=== PATIENT | female | born 1955 ===

== ENCOUNTER 2019-03-21 11:53 | Emergency (ER) | payer MEDICAID, OTHER ==
[2019-03-21 12:16] VITALS: O2SAT 98
--- NOTE | 2019-03-21 13:57 | ED PDOC ---
Lower Extremity Pain/Injury Time Seen by Provider: 03/21/19 12:42 Chief Complaint (Nursing): Lower Extremity Problem/Injury Chief Complaint (Provider): Left Knee Pain History Per: Patient History/Exam Limitations: no limitations Onset/Duration Of Symptoms: Days Additional Complaint(s): 63 year old female presents to ED with left knee pain for past 2 months. She states she has had left knee pain that is worse in the morning when she is attempting to stand. Patient has taken Tylenol intermittently with last dose 2 days ago; of note, she is allergic to Ibuprofen. She states pain is now moving to left hip and denies any fall or trauma, fever, chills, numbness or tingling in foot. Now the pain is starting to go to the right knee. PMD: none provided Past Medical History Reviewed: Historical Data, Nursing Documentation, Vital Signs Vital Signs: Last Vital Signs Temp 98.9 F 03/21/19 12:16 Pulse 69 03/21/19 12:16 Resp 16 03/21/19 12:16 BP 120/51 L 03/21/19 12:16 Pulse Ox 98 03/21/19 12:16 Primary Care Provider: FAMILY PROVIDER,NO - Medical History PMH: No Chronic Diseases - Surgical History Surgical History: Cholecystectomy, - Family History Family History: States: Unknown Family Hx - Social History Current smoker - smoking cessation education provided: No Alcohol: None Drugs: Denies - Immunization History Hx Tetanus Toxoid Vaccination: Yes Hx Influenza Vaccination: No Hx Pneumococcal Vaccination: No - Home Medications Home Medications: Ambulatory Orders Medication Instructions Recorded Doxycycline [Adoxa] 100 mg PO BID #10 tab 08/02/14 traMADol/Acetaminophen [Ultracet 1 tab PO Q6 PRN #10 tab 08/02/14 325 MG-37.5 MG] Clindamycin [Cleocin] 300 mg PO Q6 #28 cap 10/28/16 - Allergies Allergies/Adverse Reactions: Allergies Allergy/AdvReac Type Severity Reaction Status Date / Time ibuprofen Allergy Mild RASH Verified 03/21/19 12:22 Penicillins Allergy Mild RASH Verified 03/21/19 12:22 pneumococcal vaccine Allergy Mild RASH Verified 03/21/19 12:22 EGG Allergy ITCHING Verified 03/21/19 12:22 Review of Systems ROS Statement: Except As Marked, All Systems Reviewed And Found Negative Constitutional: Negative for: Fever, Chills, Other (no fall or trauma) Musculoskeletal: Positive for: Other (left and right knee pain, left hip pain) Neurological: Negative for: Numbness (or tingling in foot) Physical Exam - Reviewed Nursing Documentation Reviewed: Yes Vital Signs Reviewed: Yes - Physical Exam Appears: Positive for: Uncomfortable Pulses-Dorsalis Pedis (L): 2+ Pulses-Dorsalis Pedis (R): 2+ Extremity: Positive for: Tenderness (on palpation of lateral and medial left knee, no patella tenderness, tenderness on palpation of left hip, mild tenderness on palpation of lateral and medial right knee), Capillary Refill (less than 2 seconds), Other (no ecchymosis or erythema to left knee, sensation to light touch intact). Negative for: Normal ROM (slightly decreased ROM with flexion and extension of left and right knee, normal ROM of left ankle), Deformity (to left knee), Swelling (to left knee) Neurological/Psych: Positive for: Alert, Oriented (x3) - Laboratory Results Result Diagrams: 03/21/19 14:50 03/21/19 14:50 - ECG O2 Sat by Pulse Oximetry: 98 (RA) Pulse Ox Interpretation: Normal Medical Decision Making Medical Decision Making: Time: 1312 Initial Impression: Initial Plan: --Left knee Xray --Left hip Xray --Tylenol 975 mg PO x1 1340 Hip Xray FINDINGS: BONES: Normal. No fracture. JOINTS: Normal. SOFT TISSUES: Normal. OTHER FINDINGS: None. IMPRESSION: Normal left hip radiographs. 1342 Knee Xray FINDINGS: BONES: No evidence of acute displaced fracture nor dislocation JOINTS: There is a small anterior superior patella enthesophyte. JOINT EFFUSION: Suspect trace suprapatellar joint effusion. OTHER FINDINGS: None. IMPRESSION: No evidence of acute displaced fracture nor dislocation. Suspect trace suprapatellar joint effusion. 1433 Hip and knee Xray reviewed by me. No acute fracture or deformity but possible signs of arthritis noted. Patient was reevaluated and she reported pain improved somewhat after Tylenol but Tylenol causes her to feel weak. CBC, BMP ordered at this time. ANN bandage and crutches provided due to pain for support with crutch training provided. - Scribe Attestation: Documented by Torsten Maza, acting as a scribe for Nora Macias PA-C Provider Scribe Attestation: All medical record entries made by the Scribe were at my direction and personally dictated by me. I have reviewed the chart and agree that the record accurately reflects my personal performance of the history, physical exam, medical decision making, and the department course for this patient. I have also personally directed, reviewed, and agree with the discharge instructions and disposition. Disposition - Clinical Impression Clinical Impression: Knee pain, left - Patient ED Disposition Is Patient to be Admitted: No Counseled Patient/Family Regarding: Studies Performed, Diagnosis, Need For Followup - Disposition Referrals: [facility] [place] [Outside] [facility] [place] [Outside] Disposition: Routine/Home Disposition Time: 15:25 Condition: STABLE Additional Instructions: Follow up with primary care doctor for further evaluation of possible arthritis. Take Tylenol as needed for pain. Return to ER if your symptoms worsen. Instructions: Knee Pain (DC) Forms: [employer] (Khmer) Print Language: ENGLISH
--- NOTE | 2019-03-21 14:32 | RAD ---
Date of service: 03/21/2019 PROCEDURE: Left Knee Radiographs. HISTORY: Pain. COMPARISON: Comparison made with radiographs left ankle 12/23/2011. TECHNIQUE: 2 views obtained. FINDINGS: BONES: No evidence of acute displaced fracture nor dislocation JOINTS: There is a small anterior superior patella enthesophyte. JOINT EFFUSION: Suspect trace suprapatellar joint effusion. OTHER FINDINGS: None. IMPRESSION: No evidence of acute displaced fracture nor dislocation. Suspect trace suprapatellar joint effusion.
--- NOTE | 2019-03-21 14:47 | RAD ---
PROCEDURE: Left Hip X-ray Radiographs. HISTORY: chronic left hip and knee pain, tenderness COMPARISON: None. TECHNIQUE: Three views obtained. FINDINGS: BONES: Normal. No fracture. JOINTS: Normal. SOFT TISSUES: Normal. OTHER FINDINGS: None. IMPRESSION: Normal left hip radiographs.
[2019-03-21 14:56] LABS: HEMOGLOBIN 12.1 g/dL (12.0-16.0); MEAN CELL VOLUME 88.5 fl (81.0-99.0); MEAN CORPUSCULAR HEMOGLOBIN 29.7 pg (27.0-31.0); MEAN CORPUSCULAR HGB CONC 33.6 g/dL (33.0-37.0); MEAN PLATELET VOLUME 9.2 fl (7.2-11.7); PLATELET COUNT 223 K/uL (130-400); RBC 4.08 Mil/uL (3.80-5.20); RED CELL DISTRIBUTION WIDTH 13.5 % (11.5-14.5); WHITE BLOOD COUNT 7.4 K/uL (4.8-10.8)
[2019-03-21 15:12] LABS: ALB/GLOB RATIO 1.2 (1.0-2.1); ALBUMIN 4.3 g/dL (3.5-5.0); ALT/SGPT 31 U/L (9-52); AST/SGOT 37 U/L (14-36); BLOOD UREA NITROGEN 15 mg/dl (7-17); CALCIUM 8.8 mg/dL (8.4-10.2); GFR NON-AFRICAN AMERICAN > 60
[2019-03-21 15:30] VITALS: BP 124/58; PULSE 63; RESP 17; TEMP 98.4
[2019-03-21 16:55] LABS: BASOPHIL 1 % (0-2); EOSINOPHIL 1 % (0-7); LYMPHOCYTE 31 % (20-50); MONOCYTE 3 % (0-10); NEUTROPHIL 64 % (42-75); PLATELET ESTIMATE NORMAL (NORMAL); TOTAL CELLS COUNTED 100
[2019-03-21 16:58] LABS: BASO % 0.8 % (0.0-2.0); LYMPH % 27.3 % (20.0-40.0); MONO % 5.4 % (0.0-10.0); NEUT % 65.5 % (50.0-75.0); NRBC % 0.1 % (0.0-0.0)
[2019-03-21 16:59] LABS: EOS # 0.1 K/uL (0.0-0.7); MONO # 0.4 K/uL (0.0-0.8); NEUT # 4.7 K/uL (1.8-7.0)
[2019-03-21 17:00] LABS: BASO # 0.1 K/uL (0.0-0.2)
== END 2019-03-21 15:25 | disposition home or self-care (01) ==
LOC: H.ER 11:53
DX: M25.562 Pain in left knee (principal); M25.552 Pain in left hip